=== PATIENT | male | born 1985 | race Caucasian/White ===

== ENCOUNTER 2022-10-16 15:22 | Emergency (ER) | payer MEDICAID ==
[~2022-10-16] VITALS: Ht 175.3 cm; Wt 68.0 kg
[2022-10-16 15:29] VITALS: BP_SYST 135
--- NOTE | 2022-10-16 15:37 | NUR ---
RECEIVED PT FROM NARENDRA CHASE. PT YVETTE PATEL FOR C/O ANXIETY AND PALPITATIONS. PT HAS SOB , O2 SAT 99% ON R/A. HR 120-130S. DENIES CP. PT HAS FEELINGS OF DOME, TEMP 100.9, DIAPHORETIC. EKG OBTAINE AND GIVEN TO DR. SLATER. PULSES BOUNDING. IV CATH 18G IN PLACE, FLUSHED AND PATENT. SIDERAILS UP X2.
--- NOTE | 2022-10-16 15:40 | NUR ---
DR. SLATER AT BEDSIDE TO ASSESS PT.
--- NOTE | 2022-10-16 15:54 | NUR ---
EKG performed at BS by Camilla VALENZUELA. Physician given copy of EKG for review.
[2022-10-16] MEDS ORDERED: LORazepam 2 MG/ML VIAL IVP ONE (16:00)
[2022-10-16] MEDS ORDERED: LABETALOL HCL 20 MG/4 ML CARTRIDGE IVP ONE (16:00)
--- NOTE | 2022-10-16 16:08 | NUR ---
LABETALOL 10MG IVP GIVEN OVER 5MIN. ATIVAN 2MG IVP GIVEN.
[2022-10-16 16:26] LABS: BASOPHILS # (AUTO) 0.1 K/uL (0.0-0.2); BASOPHILS % (AUTO) 0.4 % (0.0-2.0); EOSINOPHILS % (AUTO) 0.1 % (0.0-4.0); HEMATOCRIT 45.8 % (36-54); HEMOGLOBIN 16.1 g/dL (14.0-18.0); LYMPHOCYTES # (AUTO) 2.4 K/uL (1.0-5.5); LYMPHOCYTES % (AUTO) 13.9 % (20.5-51.5); MEAN CORPUSCULAR HEMOGLOBIN 31 pg (27-31); MEAN CORPUSCULAR HGB CONC 35 % (32-36); MEAN CORPUSCULAR VOLUME 88 fL (79.0-98.0); MONOCYTES # (AUTO) 0.7 K/uL (0.0-1.0); MONOCYTES % (AUTO) 4.3 % (1.7-9.3); NEUTROPHILS # (AUTO) 13.8 K/uL (1.8-7.7); NEUTROPHILS % (AUTO) 81.3 % (40.0-70.0); PLATELET COUNT (AUTO) 230 K/uL (130-430); RED BLOOD CELL COUNT(AUTO) 5.19 MIL/uL (4.2-6.2); RED CELL DISTRIBUTION WIDTH 12.7 % (9.0-15.0)
[2022-10-16 16:38] LABS: ALANINE AMINOTRANSFERASE 38 U/L (12-78); ALBUMIN 4.2 g/dL (3.4-4.8); ANION GAP 17 (5-15); ASPARTATE AMINOTRANSFERASE 27 U/L (10-37); CALCIUM 8.8 mg/dL (8.4-11.0); CHLORIDE 100 mmol/L (98-107); CREATININE 0.98 mg/dL (0.55-1.30); GFR AFRICAN AMERICAN 112 mL/min (>90); GLUCOSE 121 mg/dL (70-99); TOTAL BILIRUBIN 0.9 mg/dL (0.0-1.0); UREA NITROGEN, BLOOD 16 mg/dL (8-21)
[2022-10-16] MEDS ORDERED: MAGNESIUM CHLORIDE 64 MG TABLET.DR PO ONE (17:15)
[2022-10-16] MEDS ORDERED: POTASSIUM CHLORIDE 20 MEQ TAB.PRT.SR PO ONE (17:15)
--- NOTE | 2022-10-16 17:28 | NUR ---
SLOW MAG 128 PO AND KLOR CON 40MEQ PO GIVEN FOR k+ 2.7.
[2022-10-16 19:29] VITALS: BP_SYST 123
--- NOTE | 2022-10-16 19:31 | NUR ---
Patient given written and verbal discharge instructions and verbalizes understanding. ER DR SLATER discussed with patient the results and treatment provided. Patient in stable condition. ID arm band removed. NO Rx given. Patient educated on pain management and to follow up with PMD. Pain Scale 0/10. Opportunity for questions provided and answered. Medication side effect fact sheet provided.
== END 2022-10-16 19:31 | disposition home or self-care (01) ==
LOC: SED 15:22
DX: E87.6 Hypokalemia (principal); T43.655A Adverse effect of methamphetamines, initial encounter; F17.200 Nicotine dependence, unspecified, uncomplicated; F12.90 Cannabis use, unspecified, uncomplicated; Z79.899 Other long term (current) drug therapy; Y92.89 Other specified places as the place of occurrence of the external cause
CPT/HCPCS: 99284; 96374; 71045; 96375; 80053; 83880; 85025; 84484; 36415; J2060; 93005